=== PATIENT | female | born 2000 | race Asian ===

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

== ENCOUNTER 2021-08-05 08:00 | Outpatient (CLI) | payer BC, OTHER ==
--- NOTE | 2021-08-05 20:41 | XRAY Report ---
PROCEDURE: Chest 2 View X-Ray INDICATIONS: Chest congestion TECHNIQUE: 2 view(s) of the chest. COMPARISON: None. FINDINGS: Surgical changes and devices: None. Lungs and pleura: No pleural effusions or pneumothorax. Lungs are clear. Mediastinum: Mediastinal contours are normal. Heart size is normal. Bones and chest wall: No suspicious bony abnormalities. Soft tissues appear unremarkable. IMPRESSION: No acute cardiopulmonary process demonstrated radiographically. Reviewed by: Juan Richards MD on 08/05/2021 8:39 PM [facility] Approved by: Juna Richards MD on 08/05/2021 8:39 PM [facility] Station ID: [id number]
== END 2021-08-05 23:59 | disposition home or self-care (01) ==
LOC: DI.S 08:00
PROVIDERS: ATTEND Physician Assistant Medical
DX: R09.81 Nasal congestion (principal); R09.89 Other specified symptoms and signs involving the circulatory and respiratory systems; Z20.822 Contact with and (suspected) exposure to COVID-19
CPT/HCPCS: 87070

== ENCOUNTER 2021-08-06 00:46 | Emergency (ER) | payer BC, OTHER ==
--- NOTE | 2021-08-06 01:04 | ED Physician Documentation ---
History of Present Illness - Stated complaint Stated Complaint: SOA, COUGH, SHAKING, WEAKNESS - History obtained from History obtained from: Patient - History of Present Illness Timing: How many days ago (4-5) - Additonal information Additional information: c/o 4-5 days of [employer] cough, generalized RIVERA, sinus congestion, nausea and vomiting, chills, myalgias, dyspnea, and generalized weakness. She was seen at a walk-in clinic earlier today for this and had COVID swab performed (results pending), as well as CXR and strep test (rapid result was negative). Patient came to ED tonight because of generalized weakness since earlier tonight. She is COVID vaccinated Review of Systems Constitutional: reports: Chills, Myalgias, Fatigue. denies: Fever Ears: denies: Ear pain Nose: reports: Congestion Throat: reports: Sore throat Cardiac: reports: Reviewed and negative Respiratory: reports: Dyspnea, Cough GI: reports: Nausea (resolved), Vomiting (resolved). denies: Abdominal Pain : denies: Dysuria, Frequency Neurologic: reports: Generalized weakness, Headache PD PAST MEDICAL HISTORY - Past Medical History Cardiovascular: None Respiratory: None Endocrine/Autoimmune: None GI: None : None HEENT: None Psych: Depression, Anxiety, Bipolar disorder, Post traumatic stress disorder Musculoskeletal: None Derm: None - Past Surgical History Past Surgical History: No - Present Medications Home Medications: Ambulatory Orders Medication Instructions Recorded Confirmed Clindamycin [Cleocin] 300 mg PO BID 1 Days #2 capsule 06/21/[address] [Depakote Dr] 250 mg PO BID tablet 06/21/18 Lurasidone HCl [Latuda] 20 mg PO DAILYWM tablet 06/21/18 OLANZapine ODT [Zyprexa Odt] 2.5 mg TL 2200 PRN tablet 06/21/18 - Allergies Allergies/Adverse Reactions: Allergies Allergy/AdvReac Type Severity Reaction Status Date / Time lamotrigine [From Lamictal] Allergy Mild Rash Verified 06/14/18 11:12 - Social History Smoking Status: Never smoker PD ED PE NORMAL - Vitals Vital signs reviewed: Yes - General General: Alert and oriented X 3, No acute distress, Well developed/nourished - HEENT HEENT: Ears normal, Pharynx benign - Neck Neck: Supple, no meningeal sign - Cardiac Cardiac: RRR, No murmur - Respiratory Respiratory: No respiratory distress, Clear bilaterally - Abdomen Abdomen: Soft, Non tender Results - Vitals Vitals: Oxygen O2 Source Room air PD MEDICAL DECISION MAKING - ED course Complexity details: considered differential, d/w patient ED course: symptoms suggestive of URI. Has COVID swab result pending, and (per patient) she had negative rapid strep test negative and cxr without findings performed earlier today. She is in NAD on exam without abnormal findings on exam including clear lungs and no swelling or erythema posterior oropharynx. emergent testing not indicated at this time. Departure - Departure Disposition: 01 Home, Self Care Clinical Impression: Upper respiratory infection Qualifiers: URI type: unspecified viral URI Qualified Code(s): J06.9 - Acute upper respiratory infection, unspecified Condition: Good Instructions: ED Upper Resp Infec No Abx Tx Discharge Date/Time: 08/06/21 02:05
[2021-08-06 01:12] VITALS: BP 123/79
== END 2021-08-06 02:05 | disposition home or self-care (01) ==
LOC: ED 00:46
DX: J06.9 Acute upper respiratory infection, unspecified (principal); B97.89 Other viral agents as the cause of diseases classified elsewhere
CPT/HCPCS: 99281; 99282

== ENCOUNTER 2021-08-13 10:37 | Outpatient (CLI) | payer OTHER ==
[2021-08-13 15:56] LABS: BASOPHILS # (AUTO) 0.1 10^3/uL (0.0-0.1); BASOPHILS % (AUTO) 0.8 %; EOSINOPHILS # (AUTO) 0.3 10^3/uL (0.0-0.7); EOSINOPHILS % (AUTO) 2.7 %; HCT - HEMATOCRIT 44.1 % (37.0-47.0); HGB - HEMOGLOBIN 14.7 g/dL (12.0-16.0); LYMPHOCYTES # (AUTO) 2.9 10^3/uL (1.5-3.5); LYMPHOCYTES % (AUTO) 31.7 %; MEAN CORPUSCULAR HEMOGLOBIN 30.1 pg (27.0-31.0); MEAN CORPUSCULAR HGB CONC 33.3 g/dL (32.0-36.0); MEAN CORPUSCULAR VOLUME 90.4 fL (81.0-99.0); MEAN PLATELET VOLUME 11.2 fL (7.9-10.8); MONOCYTES # (AUTO) 0.6 10^3/uL (0.0-1.0); MONOCYTES % (AUTO) 6.5 %; NEUTROPHILS # (AUTO) 5.4 10^3/uL (1.5-6.6); NEUTROPHILS % (AUTO) 58.1 %; PLT - PLATELET COUNT 312 10^3/uL (130-450); RED BLOOD COUNT 4.88 10^6/uL (4.20-5.40); RED CELL DISTRIBUTION WIDTH 11.9 % (12.0-15.0); WHITE BLOOD COUNT 9.3 x10^3/uL (4.8-10.8)
[2021-08-13 16:05] LABS: ALBUMIN 4.9 g/dL (3.2-5.5); ALBUMIN/GLOBULIN RATIO 1.5 (1.0-2.2); BILIRUBIN,TOTAL 0.6 mg/dL (0.2-1.0); CALCIUM 10.2 mg/dL (8.5-10.3); CREATININE 0.5 mg/dL (0.4-1.0); POTASSIUM 4.2 mmol/L (3.5-5.0); TOTAL PROTEIN 8.2 g/dL (6.7-8.2)
[2021-08-13 16:43] LABS: INFECTIOUS MONONUCLEOSIS NEGATIVE (Negative)
== END 2021-08-13 23:59 | disposition home or self-care (01) ==
LOC: LAB.S 10:37
PROVIDERS: ATTEND Emergency Medicine
DX: B34.9 Viral infection, unspecified (principal); R07.0 Pain in throat; R05.9 Cough, unspecified; Z20.822 Contact with and (suspected) exposure to COVID-19
CPT/HCPCS: 36415; 80053; 83690; 85025; 86308; 87070